=== PATIENT | male | born 1995 | race African-American/Black ===

== ENCOUNTER 2018-07-18 20:12 | Emergency (ER) | payer OTHER ==
[2018-07-18] MEDS ORDERED: ONDANSETRON HCL INJ/PF 4 MG/2 ML SDV IV ONE (20:37)
--- NOTE | 2018-07-18 20:38 | ER Document Report ---
ED Medical Screen (RME) - General Chief Complaint: Vomiting/Diarrhea Stated Complaint: VOMITING Time Seen by Provider: 07/18/18 20:33 Mode of Arrival: Ambulatory Information source: Patient Notes: This is a 22-year-old man with no medical problems who presents to the emergency room with nausea, vomiting, diarrhea since this morning. Patient states he was out eating ribs last night when he woke up he did not feel well. He complains of some upper abdominal discomfort. TRAVEL OUTSIDE OF THE [place] IN LAST 30 DAYS: No - Related Data Allergies/Adverse Reactions: No Known Allergies Allergy (Unverified 07/18/18 20:20) Past Medical History Renal/ Medical History: Denies: Hx Peritoneal Dialysis Physical Exam - Vital signs Vitals: Temp Pulse Resp BP Pulse Ox 98.2 F 121 H 16 117/75 100 07/18/18 20:28 07/18/18 20:28 07/18/18 20:28 07/18/18 20:28 07/18/18 20:28 Course - Vital Signs Vital signs: Temp Pulse Resp BP Pulse Ox 98.2 F 121 H 16 117/75 100 07/18/18 20:28 07/18/18 20:28 07/18/18 20:28 07/18/18 20:28 07/18/18 20:28
[2018-07-18] MEDS: RINGERS SOLUTION,LACTATED 1,000 ML IV PRN ×2 (20:45→23:23)
[2018-07-18 21:14] LABS: HEMATOCRIT 50.8 % (37.9-51.0); HEMOGLOBIN 17.7 g/dL (13.5-17.0); MEAN CORPUSCULAR HEMOGLOBIN 32.5 pg (27.0-33.4); MEAN CORPUSCULAR HGB CONC 34.9 g/dL (32.0-36.0); MEAN CORPUSCULAR VOLUME 93 fl (80-97); PLATELET COUNT 343 10^3/uL (150-450); RED BLOOD COUNT 5.46 10^6/uL (4.35-5.55); RED CELL DISTRIBUTION WIDTH 11.7 % (11.5-14.0); WHITE BLOOD COUNT 10.5 10^3/uL (4.0-10.5)
[2018-07-18 21:23] LABS: ABSOLUTE LYMPHOCYTES# (MANUAL) 0.9 10^3/uL (0.5-4.7); ABSOLUTE MONOCYTES # (MANUAL) 0.7 10^3/uL (0.1-1.4); ABSOLUTE NEUTROPHILS# (MANUAL) 8.8 10^3/uL (1.7-8.2); BASOPHILS % (MANUAL) 0 % (0-2); EOSINOPHILS % (MANUAL) 0 % (0-6); LYMPHOCYTES % (MANUAL) 7 % (13-45); MONOCYTES % (MANUAL) 7 % (3-13); SEGMENTED NEUTROPHILS % (MAN) 84 % (42-78); TOTAL CELLS COUNTED 100
[2018-07-18 21:24] LABS: TOXIC VACUOLATION PRESENT
[2018-07-18 21:25] LABS: PLATELET COMMENT ADEQUATE; PLATELET LARGE PRESENT; RBC MORPHOLOGY COMMENT NORMO-CYTIC/CHROMIC
[2018-07-18 22:13] LABS: ALANINE AMINOTRANSFERASE 32 U/L (21-72); ALBUMIN 5.2 g/dL (3.5-5.0); ALKALINE PHOSPHATASE 65 U/L (38-126); ANION GAP 11 (5-19); ASPARTATE AMINO TRANSFERASE 25 U/L (17-59); BILIRUBIN,DIRECT 0.2 mg/dL (0.0-0.4); BILIRUBIN,TOTAL 2.1 mg/dL (0.2-1.3); BLOOD UREA NITROGEN 16 mg/dL (7-20); CALCIUM 10.2 mg/dL (8.4-10.2); CARBON DIOXIDE 28 mmol/L (22-30); CHLORIDE 103 mmol/L (98-107); GLUCOSE 138 mg/dL (75-110); LIPASE 47.4 U/L (23-300); POTASSIUM 4.7 mmol/L (3.6-5.0); SODIUM 141.7 mmol/L (137-145); TOTAL PROTEIN 7.9 g/dL (6.3-8.2)
--- NOTE | 2018-07-18 23:06 | ER Document Report ---
ED General - General Chief Complaint: Vomiting/Diarrhea Stated Complaint: VOMITING Time Seen by Provider: 07/18/18 20:33 Primary Care Provider: KATE SALDAÑA DO [Primary Care Provider] - Follow up as needed Mode of Arrival: Ambulatory Notes: This is a 22-year-old man with no medical problems who presents to the emergency room with nausea, vomiting, diarrhea since this morning. Patient states he was out eating ribs last night at [employer] when he woke up he did not feel well. He complains of some upper abdominal discomfort. He complains of vomiting greater than 10 times, diarrhea greater than 10 times, weakness, chills, headache, abdominal cramping. He states that there is no blood in his vomit but did not check to see if there is blood in the diarrhea. Patient has no other c omplaints. TRAVEL OUTSIDE OF THE [place] IN LAST 30 DAYS: No - Related Data Allergies/Adverse Reactions: No Known Allergies Allergy (Unverified 07/18/18 20:20) Past Medical History - General Information source: Patient - Social History Smoking Status: Never Smoker Family History: None Patient has suicidal ideation: No Patient has homicidal ideation: No Renal/ Medical History: Denies: Hx Peritoneal Dialysis Review of Systems - Review of Systems Constitutional: See HPI EENT: No symptoms reported Cardiovascular: No symptoms reported Respiratory: No symptoms reported Gastrointestinal: See HPI Genitourinary: See HPI Male Genitourinary: No symptoms reported Musculoskeletal: No symptoms reported Skin: No symptoms reported Hematologic/Lymphatic: No symptoms reported Neurological/Psychological: See HPI Physical Exam - Vital signs Vitals: Temp Pulse Resp BP Pulse Ox 98.2 F 121 H 16 117/75 100 07/18/18 20:28 07/18/18 20:28 07/18/18 20:28 07/18/18 20:28 07/18/18 20:28 - Notes Notes: PHYSICAL EXAMINATION: Reviewed vital signs and charting by RN GENERAL: Alert, interacts well. No acute distress. HEAD: Normocephalic, atraumatic. EYES: Pupils equal, round. Extraocular movements intact. ENT: Oral mucosa moist NECK: Full range of motion. Supple. Trachea midline. LUNGS: Clear to auscultation bilaterally, no wheezes, rales, or rhonchi. No respiratory distress. HEART: Regular rate and rhythm. No murmur. Tachycardia, rate 110 ABDOMEN: soft, non-tender. Non-distended. Bowel sounds present in all 4 quadrants, hyperactive. no McBurney's point tenderness, no Bernard sign. EXTREMITIES: Moves all 4 extremities spontaneously. No edema, No cyanosis. NEUROLOGICAL: Alert and oriented x3. Normal speech. PSYCH: Normal affect, normal mood. SKIN: Warm, dry, normal turgor. No rashes or lesions noted. Course - Re-evaluation Re-evalutation: 07/18/18 23:05 Well-appearing 22-year-old male presents for dehydration secondary to food poisoning. Vomiting and diarrhea greater than 10 times each. Patient has re ceived Zofran and 1 L of Ringer's lactate. Patient states he is feeling better after this initial intervention. Plan is to give him a second liter of Ringer's lactate and reassess. Patient's heart rate has come down from 121 07/19/18 00:09 Second liter of Ringer's lactate infused. Patient drinking Maxine mist in the meantime and I have given him adina sandip. He has passed a p.o. challenge. He art rate now 90. Patient feels much better. Plan to discharge with a dispense pack of Zofran and instructions to follow-up in his [facility] in the morning. - Vital Signs Vital signs: Temp Pulse Resp BP Pulse Ox 98.2 F 121 H 16 117/75 100 07/18/18 20:28 07/18/18 20:28 07/18/18 20:28 07/18/18 20:28 07/18/18 20:28 - Laboratory Result Diagrams: 07/18/18 20:46 07/18/18 21:45 Laboratory results interpreted by me: 07/18/18 07/18/18 20:46 21:45 Hgb 17.7 H Seg Neuts % (Manual) 84 H Lymphocytes % (Manual) 7 L Abs Neuts (Manual) 8.8 H Glucose 138 H Total Bilirubin 2.1 H Albumin 5.2 H Discharge - Discharge Clinical Impression: Food poisoning Qualifiers: Encounter type: initial encounter Injury intent: accidental or unintentional Qualified Code(s): T62.91XA - Toxic effect of unspecified noxious substance eaten as food, accidental (unintentional), initial encounter Condition: Good Disposition: HOME, SELF-CARE Instructions: Antinausea Medication ([facility]), Vomiting ([facility]), Intravenous (IV) Fluids ([facility]) Additional Instructions: He was seen in the ER this evening for suspected food poisoning. Please follow- up with your [facility] in the morning. I have given you a short course of antinausea medication called Zofran. You can take this prior to eating if you feel nauseated. The diarrhea should run its course in the next 24 hours. If you continue to have profuse diarrhea please follow-up with your [facility] or you can return to the emergency department. Develop fever, weakness, pass out, or any other concerning symptoms please return to the emergency department. Referrals: KATE SALDAÑA, [Primary Care Provider] - Follow up as needed
[2018-07-19] MEDS ORDERED: ONDANSETRON ODT 4 MG TAB (6 TAB/ER DISP) PO PRN (00:12)
[2018-07-19 00:41] VITALS: BP 132/66
== END 2018-07-19 00:45 | disposition home or self-care (01) ==
LOC: EDBD → ER 20:12
DX: T62.91XA Toxic effect of unspecified noxious substance eaten as food, accidental (unintentional), initial encounter (principal); R11.2 Nausea with vomiting, unspecified; R19.7 Diarrhea, unspecified; R10.10 Upper abdominal pain, unspecified
CPT/HCPCS: 99284; 96361; 96374; 36415; 83690; 85025; 80053; J2405; J7120